=== PATIENT | female | born 1975 | race Caucasian/White ===

== ENCOUNTER 2022-11-28 13:51 | Inpatient (IN) | payer MEDICAID ==
[~2022-11-28] VITALS: Ht 154.9 cm; Wt 59.0 kg
[2022-11-28] MEDS: LORazepam 2 MG TABLET PO PRN (17:23)
[2022-11-28] MEDS: QUEtiapine FUMARATE 100 MG TABLET PO PRN (17:23)
[2022-11-28 17:34] VITALS: BP_SYST 128; BP_SYST 144; BP_DIAS 62; BP_DIAS 82
[2022-11-28] MEDS ORDERED: PNEUMOCOCCAL VACCINE POLYVALENT 0.5 ML VIAL [PPSV23] IM. ONE (18:45)
[2022-11-28] MEDS ORDERED: INFLUENZA VIRUS VACCINE QVS 2022-23 (6MO+)/PF 60 MCG/0.5 ML SYRINGE IM. ONE (18:45)
[2022-11-28] MEDS ORDERED: IBUPROFEN 400 MG TABLET PO PRN (19:00)
[2022-11-28] MEDS ORDERED: ACETAMINOPHEN 325 MG TABLET PO PRN (19:15)
[2022-11-28 21:01] VITALS: BP 107/65
[2022-11-29 07:33] LABS: BASOPHILS % (AUTO) 0.7 % (0.0-2.0); EOSINOPHILS % (AUTO) 2.8 % (1.0-6.0); HEMATOCRIT 34.7 % (36-46); HEMOGLOBIN 11.6 g/dL (12.0-16.0); LITHIUM 0.55 mmol/L (0.60-1.20); LYMPHOCYTES # (AUTO) 1.7 K/uL (1.0-4.8); LYMPHOCYTES % (AUTO) 20.7 % (22.0-44.0); MEAN CORPUSCULAR HEMOGLOBIN 30.3 pg (26.0-34.0); MEAN CORPUSCULAR HGB CONC 33.5 G/dL (31.0-37.0); MEAN CORPUSCULAR VOLUME 90 fL (80-100); MONOCYTES # (AUTO) 0.7 K/uL (0.1-1.0); NEUTROPHILS # (AUTO) 5.7 K/uL (1.8-7.7); NEUTROPHILS % (AUTO) 67.8 % (40.0-70.0); PLATELET COUNT (AUTO) 380 K/uL (150-450); RED BLOOD CELL COUNT(AUTO) 3.85 MIL/uL (4.00-5.20); RED CELL DISTRIBUTION WIDTH 13.4 % (11.5-14.5)
[2022-11-29 07:42] LABS: HEMOGLOBIN A1C 5.2 % (3.8-5.6)
[2022-11-29 07:48] LABS: ALANINE AMINOTRANSFERASE 17 U/L (12-78); ALBUMIN 3.3 g/dL (3.4-5.0); ALKALINE PHOSPHATASE 90 U/L (46-116); ANION GAP 7 mmol/L (8-16); ASPARTATE AMINOTRANSFERASE 15 U/L (15-37); BILIRUBIN,TOTAL 0.2 mg/dL (0.1-1.0); CALCIUM, TOTAL 9.3 mg/dL (8.8-10.5); CARBON DIOXIDE 26 mmol/L (22-29); CHLORIDE 108 mmol/L (98-107); CHOL/HDL RATIO 3.7 (3.9-5.7); CHOLESTEROL 180 mg/dL (131-200); CREATININE 0.77 mg/dL (0.60-1.30); FREE T4 (FREE THYROXINE) 1.22 ng/dL (0.76-1.46); GLOMERULAR FILTR. RATE CALC > 60 mL/min (>60); GLUCOSE,RANDOM 95 mg/dL (70-110); HDL CHOLESTEROL 49 mg/dL (40-60); LDL CHOL (CALC.) 115 mg/dL (0-130); POTASSIUM 4.1 mmol/L (3.5-5.1); SODIUM SERUM 141 mmol/L (136-145); THYROID STIMULATING HORMONE 0.11 uIU/mL (0.36-3.74); TOTAL PROTEIN, SERUM 7.3 g/dL (6.4-8.2); TRIGLYCERIDES 79 mg/dL (15-150); UREA NITROGEN, BLOOD 12 mg/dL (7-18)
[2022-11-29 08:11] VITALS: BP 123/74
[2022-11-29] MEDS: ACYCLOVIR 200 MG CAPSULE PO SCH ×3 (09:30→17:00)
[2022-11-29] MEDS: LITHIUM CARBONATE 300 MG CAPSULE PO SCH ×2 (11:24→16:59)
[2022-11-29] MEDS: LamoTRIgine 100 MG TABLET PO SCH (11:24)
[2022-11-29] MEDS: FLUoxetine HCL 20 MG CAPSULE PO SCH (11:24)
[2022-11-29] MEDS: GABAPENTIN 300 MG CAPSULE PO SCH ×2 (13:08→17:00)
[2022-11-29] MEDS ORDERED: HALOPERIDOL LACTATE 5 MG/ML VIAL ONE (14:21)
[2022-11-29] MEDS ORDERED: DiphenhydrAMINE HCL 50 MG/ML VIAL ONE (14:21)
[2022-11-29] MEDS ORDERED: DiphenhydrAMINE HCL 50 MG/ML VIAL IM ONE (14:30)
[2022-11-29] MEDS ORDERED: LORazepam 2 MG/ML VIAL IM ONE (14:30)
[2022-11-29] MEDS ORDERED: HALOPERIDOL LACTATE 5 MG/ML VIAL IM ONE (14:30)
[2022-11-29] MEDS: LORazepam 2 MG TABLET PO PRN (17:00)
[2022-11-29 20:21] VITALS: BP 125/88
[2022-11-29] MEDS: ZOLPIDEM TARTRATE 10 MG TABLET PO PRN (21:21)
[2022-11-29] MEDS: QUEtiapine FUMARATE 25 MG TABLET PO SCH (21:21)
[2022-11-30 06:06] LABS: HEPATITIS C AB (EIA) <0.1 s/co ratio (0.0-0.9)
[2022-11-30] MEDS: ACYCLOVIR 200 MG CAPSULE PO SCH ×3 (08:28→16:25)
[2022-11-30] MEDS: GABAPENTIN 300 MG CAPSULE PO SCH ×3 (08:28→16:24)
[2022-11-30] MEDS: LITHIUM CARBONATE 300 MG CAPSULE PO SCH ×2 (08:28→16:25)
[2022-11-30] MEDS: LamoTRIgine 100 MG TABLET PO SCH (08:28)
[2022-11-30] MEDS: FLUoxetine HCL 20 MG CAPSULE PO SCH (08:28)
[2022-11-30 08:35] VITALS: BP 123/74
[2022-11-30] MEDS: QUEtiapine FUMARATE 100 MG TABLET PO PRN ×2 (10:31→16:28)
[2022-11-30] MEDS: LORazepam 2 MG TABLET PO PRN ×3 (10:31→20:27)
[2022-11-30 20:17] VITALS: BP 123/67
[2022-11-30] MEDS: QUEtiapine FUMARATE 25 MG TABLET PO SCH (20:27)
[2022-11-30] MEDS: ZOLPIDEM TARTRATE 10 MG TABLET PO PRN (21:30)
[2022-12-01] MEDS: GABAPENTIN 300 MG CAPSULE PO SCH ×4 (08:39→16:13)
[2022-12-01] MEDS: FLUoxetine HCL 20 MG CAPSULE PO SCH (08:40)
[2022-12-01] MEDS: LITHIUM CARBONATE 300 MG CAPSULE PO SCH ×2 (08:40→16:13)
[2022-12-01] MEDS: LamoTRIgine 100 MG TABLET PO SCH (08:40)
[2022-12-01] MEDS: ACYCLOVIR 200 MG CAPSULE PO SCH ×4 (08:40→16:13)
[2022-12-01 10:00] VITALS: BP 116/60
[2022-12-01] MEDS: LORazepam 2 MG TABLET PO PRN ×2 (10:05→21:00)
[2022-12-01] MEDS: QUEtiapine FUMARATE 100 MG TABLET PO PRN (10:05)
[2022-12-01] MEDS ORDERED: DiphenhydrAMINE HCL 50 MG/ML VIAL ONE (13:07)
[2022-12-01] MEDS ORDERED: LORazepam 2 MG/ML VIAL ONE (13:07)
[2022-12-01] MEDS ORDERED: HALOPERIDOL LACTATE 5 MG/ML VIAL ONE (13:07)
[2022-12-01] MEDS ORDERED: HALOPERIDOL LACTATE 5 MG/ML VIAL IM ONE (13:30)
[2022-12-01] MEDS ORDERED: DiphenhydrAMINE HCL 50 MG/ML VIAL IM ONE (13:30)
[2022-12-01] MEDS ORDERED: LORazepam 2 MG/ML VIAL IM ONE (13:30)
[2022-12-01 20:00] VITALS: BP 117/73
[2022-12-01] MEDS: QUEtiapine FUMARATE 25 MG TABLET PO SCH (21:00)
[2022-12-01] MEDS: ZOLPIDEM TARTRATE 10 MG TABLET PO PRN (21:00)
[2022-12-02] MEDS: QUEtiapine FUMARATE 100 MG TABLET PO PRN (06:15)
[2022-12-02] MEDS: LORazepam 2 MG TABLET PO PRN ×3 (06:15→16:16)
[2022-12-02] MEDS: LamoTRIgine 100 MG TABLET PO SCH (08:46)
[2022-12-02] MEDS: GABAPENTIN 300 MG CAPSULE PO SCH ×3 (08:46→16:16)
[2022-12-02] MEDS: FLUoxetine HCL 20 MG CAPSULE PO SCH (08:46)
[2022-12-02] MEDS: LITHIUM CARBONATE 300 MG CAPSULE PO SCH ×2 (08:46→16:15)
[2022-12-02] MEDS: ACYCLOVIR 200 MG CAPSULE PO SCH ×3 (09:00→16:16)
[2022-12-02 09:30] VITALS: BP 117/76
[2022-12-02 16:45] VITALS: BP 112/72
[2022-12-02] MEDS ORDERED: LAMO25TA25 PO (18:22)
[2022-12-02] MEDS ORDERED: GABA-1181 PO (18:22)
[2022-12-02] MEDS ORDERED: FLUO20CA36 PO (18:22)
[2022-12-02] MEDS ORDERED: LITH300C3 PO (18:22)
[2022-12-02] MEDS ORDERED: LORA-1000 PO (18:22)
[2022-12-02] MEDS ORDERED: QUET200T PO (18:22)
[2022-12-02 20:07] VITALS: BP 128/78
[2022-12-02] MEDS: QUEtiapine FUMARATE 25 MG TABLET PO SCH (20:50)
[2022-12-02] MEDS: ZOLPIDEM TARTRATE 10 MG TABLET PO PRN (20:50)
[2022-12-02 21:00] VITALS: BP 128/80
[2022-12-03] MEDS: LORazepam 2 MG TABLET PO PRN (06:14)
[2022-12-03] MEDS: QUEtiapine FUMARATE 100 MG TABLET PO PRN (06:14)
[2022-12-03] MEDS: ACYCLOVIR 200 MG CAPSULE PO SCH ×3 (08:46→17:02)
[2022-12-03] MEDS: LITHIUM CARBONATE 300 MG CAPSULE PO SCH ×2 (08:46→17:02)
[2022-12-03] MEDS: FLUoxetine HCL 20 MG CAPSULE PO SCH (08:46)
[2022-12-03] MEDS: GABAPENTIN 300 MG CAPSULE PO SCH ×3 (08:46→17:02)
[2022-12-03] MEDS: LamoTRIgine 100 MG TABLET PO SCH (08:46)
[2022-12-03] MEDS ORDERED: LORazepam 2 MG/ML VIAL ONE (09:23)
[2022-12-03] MEDS ORDERED: HALOPERIDOL LACTATE 5 MG/ML VIAL ONE (09:23)
[2022-12-03] MEDS ORDERED: DiphenhydrAMINE HCL 50 MG/ML VIAL ONE (09:23)
[2022-12-03] MEDS ORDERED: LORazepam 2 MG/ML VIAL IM ONE ×2 (09:45→14:15)
[2022-12-03] MEDS ORDERED: DiphenhydrAMINE HCL 50 MG/ML VIAL IM ONE (09:45)
[2022-12-03] MEDS ORDERED: HALOPERIDOL LACTATE 5 MG/ML VIAL IM ONE (09:45)
[2022-12-03 12:03] VITALS: BP 107/65
[2022-12-03] MEDS ORDERED: ChlorproMAZINE HCL 50 MG/2 ML AMP IM ONE (14:15)
[2022-12-03] MEDS: QUEtiapine FUMARATE 25 MG TABLET PO SCH (20:54)
[2022-12-03] MEDS: ZOLPIDEM TARTRATE 10 MG TABLET PO PRN (23:11)
[2022-12-04 08:01] LABS: GLUCOMETER DEV NAME(LOC) POC.BV
[2022-12-04] MEDS: LITHIUM CARBONATE 300 MG CAPSULE PO SCH ×2 (08:13→16:26)
[2022-12-04] MEDS: LamoTRIgine 100 MG TABLET PO SCH (08:13)
[2022-12-04] MEDS: FLUoxetine HCL 20 MG CAPSULE PO SCH (08:13)
[2022-12-04] MEDS: ACYCLOVIR 200 MG CAPSULE PO SCH ×3 (08:13→16:30)
[2022-12-04] MEDS: GABAPENTIN 300 MG CAPSULE PO SCH ×3 (08:15→16:25)
[2022-12-04 08:22] VITALS: BP 137/76
[2022-12-04] MEDS: QUEtiapine FUMARATE 100 MG TABLET PO PRN ×2 (09:36→16:31)
[2022-12-04] MEDS: LORazepam 2 MG TABLET PO PRN ×3 (09:36→19:47)
[2022-12-04] MEDS ORDERED: LORazepam 2 MG/ML VIAL ONE (09:51)
[2022-12-04] MEDS ORDERED: DiphenhydrAMINE HCL 50 MG/ML VIAL ONE (09:52)
[2022-12-04] MEDS ORDERED: HALOPERIDOL LACTATE 5 MG/ML VIAL ONE (09:52)
[2022-12-04] MEDS ORDERED: LORazepam 2 MG/ML VIAL IM ONE (10:00)
[2022-12-04] MEDS ORDERED: HALOPERIDOL LACTATE 5 MG/ML VIAL IM ONE (10:00)
[2022-12-04] MEDS ORDERED: DiphenhydrAMINE HCL 50 MG/ML VIAL IM ONE (10:00)
[2022-12-04] MEDS: QUEtiapine FUMARATE 25 MG TABLET PO SCH (20:01)
[2022-12-04 20:03] VITALS: BP 118/69
[2022-12-04] MEDS: ZOLPIDEM TARTRATE 10 MG TABLET PO PRN (21:41)
[2022-12-05] MEDS: LamoTRIgine 100 MG TABLET PO SCH (08:16)
[2022-12-05] MEDS: GABAPENTIN 300 MG CAPSULE PO SCH ×3 (08:16→17:00)
[2022-12-05] MEDS: QUEtiapine FUMARATE 100 MG TABLET PO PRN ×2 (08:17→12:17)
[2022-12-05] MEDS: LORazepam 2 MG TABLET PO PRN ×3 (08:17→22:59)
[2022-12-05] MEDS: LITHIUM CARBONATE 300 MG CAPSULE PO SCH ×2 (08:17→17:00)
[2022-12-05] MEDS: FLUoxetine HCL 20 MG CAPSULE PO SCH (08:17)
[2022-12-05] MEDS: ACYCLOVIR 200 MG CAPSULE PO SCH ×3 (09:58→17:00)
[2022-12-05] MEDS: QUEtiapine FUMARATE 25 MG TABLET PO SCH (22:11)
[2022-12-05] MEDS: ZOLPIDEM TARTRATE 10 MG TABLET PO PRN (22:16)
[2022-12-06] MEDS: QUEtiapine FUMARATE 100 MG TABLET PO PRN ×2 (03:38→08:15)
[2022-12-06] MEDS: LITHIUM CARBONATE 300 MG CAPSULE PO SCH (08:11)
[2022-12-06] MEDS: GABAPENTIN 300 MG CAPSULE PO SCH ×2 (08:11→12:10)
[2022-12-06] MEDS: FLUoxetine HCL 20 MG CAPSULE PO SCH (08:11)
[2022-12-06] MEDS: LamoTRIgine 100 MG TABLET PO SCH (08:11)
[2022-12-06] MEDS: ACYCLOVIR 200 MG CAPSULE PO SCH ×2 (08:11→12:09)
[2022-12-06] MEDS: LORazepam 2 MG TABLET PO PRN (08:11)
[2022-12-06 08:48] VITALS: BP 118/73
[2022-12-06] MEDS ORDERED: ACYC-138 PO (09:56)
[2022-12-06] MEDS ORDERED: QUET25TA36 PO (10:07)
[2022-12-06] MEDS ORDERED: FLUO20CA36 PO (10:07)
[2022-12-06] MEDS ORDERED: LAMO100 PO (10:07)
[2022-12-06] MEDS ORDERED: LITH300C3 PO (10:07)
== END 2022-12-06 12:33 | disposition home or self-care (01) | DRG 753 ==
LOC: B2S 16:56 → B3A 12-01 11:58
PROVIDERS: ADMIT Psychiatry & Neurology Child & Adolescent Psychiatry; ATTEND Psychiatry & Neurology Child & Adolescent Psychiatry
DX: F31.2 Bipolar disorder, current episode manic severe with psychotic features (principal); R45.851 Suicidal ideations; Z20.822 Contact with and (suspected) exposure to COVID-19; D64.9 Anemia, unspecified; F41.9 Anxiety disorder, unspecified; G47.00 Insomnia, unspecified; Z28.21 Immunization not carried out because of patient refusal; Z88.0 Allergy status to penicillin; Z88.8 Allergy status to other drugs, medicaments and biological substances
CPT/HCPCS: 80053; 80061; 80178; 83036; 84439; 84443; 85025; 86803; 87340; J1200; J1630; J2060; J3230

== ENCOUNTER 2022-12-02 17:43 | Emergency (ER) | payer MEDICAID, OTHER ==
[~2022-12-02] VITALS: Ht 154.9 cm; Wt 56.8 kg
[2022-12-02 18:15] VITALS: BP 124/62
[2022-12-02] MEDS ORDERED: GABA-1181 PO (18:22)
[2022-12-02] MEDS ORDERED: QUET200T PO (18:22)
[2022-12-02] MEDS ORDERED: FLUO20CA36 PO (18:22)
[2022-12-02] MEDS ORDERED: LAMO25TA25 PO (18:22)
[2022-12-02] MEDS ORDERED: LORA-1000 PO (18:22)
[2022-12-02] MEDS ORDERED: LITH300C3 PO (18:22)
[2022-12-02] MEDS ORDERED: ACETAMINOPHEN 500 MG TABLET PO ONE (18:30)
== END 2022-12-02 18:48 | disposition home or self-care (01) ==
LOC: EMS 17:44
DX: S00.03XA Contusion of scalp, initial encounter (principal); F41.9 Anxiety disorder, unspecified; Z90.710 Acquired absence of both cervix and uterus; Z98.890 Other specified postprocedural states; Z88.0 Allergy status to penicillin; Z88.8 Allergy status to other drugs, medicaments and biological substances; Y04.8XXA Assault by other bodily force, initial encounter; Y93.89 Activity, other specified; Y92.89 Other specified places as the place of occurrence of the external cause; Y99.8 Other external cause status
CPT/HCPCS: 99282; Z7502; Z7610

== ENCOUNTER 2022-12-05 14:46 | Emergency (ER) | payer OTHER ==
[~2022-12-05] VITALS: Ht 154.9 cm; Wt 59.0 kg
[~2022-12-05 14:46] MED LIST: FLUO20CA36 PO; GABA-1181 PO; LAMO25TA25 PO; LITH300C3 PO; LORA-1000 PO; QUET200T PO
[2022-12-05 16:31] VITALS: BP 120/72
[2022-12-05] MEDS ORDERED: QUEtiapine FUMARATE 25 MG TABLET PO ONE (20:00)
[2022-12-05] MEDS ORDERED: LORazepam 2 MG TABLET PO ONE (20:00)
[2022-12-05] MEDS ORDERED: GABAPENTIN 300 MG CAPSULE PO ONE (20:30)
[2022-12-05] MEDS ORDERED: LITHIUM CARBONATE 300 MG CAPSULE PO ONE (20:30)
[2022-12-06] MEDS ORDERED: ACYC-138 PO (09:56)
[2022-12-06] MEDS ORDERED: LITH300C3 PO (10:07)
[2022-12-06] MEDS ORDERED: QUET25TA36 PO (10:07)
[2022-12-06] MEDS ORDERED: FLUO20CA36 PO (10:07)
[2022-12-06] MEDS ORDERED: LAMO100 PO (10:07)
== END 2022-12-05 22:00 | disposition left against medical advice (07) ==
LOC: EMS 14:47
DX: S09.90XA Unspecified injury of head, initial encounter (principal); F41.9 Anxiety disorder, unspecified; F12.90 Cannabis use, unspecified, uncomplicated; Z90.710 Acquired absence of both cervix and uterus; Z98.890 Other specified postprocedural states; Z88.0 Allergy status to penicillin; Z88.8 Allergy status to other drugs, medicaments and biological substances; Y04.8XXA Assault by other bodily force, initial encounter; Y93.89 Activity, other specified; Y92.89 Other specified places as the place of occurrence of the external cause; Y99.8 Other external cause status
CPT/HCPCS: 99284